=== PATIENT | male | born 1945 | race American Indian/Alaskan Native ===

== ENCOUNTER 2018-07-21 07:43 | Day surgery (SDC) | payer MEDICARE, OTHER ==
[2018-07-21] MEDS ORDERED: ANCEF/STERILE WATER 2 GM/20 ML IV NR (09:00)
[2018-07-21] MEDS ORDERED: LACTATED RINGERS 1,000 ML IV SCH (09:00)
[2018-07-21] MEDS ORDERED: MARCAINE-EPI 0.25%-1:200,000 INFILTRATI ONE (09:13)
[2018-07-21] MEDS ORDERED: XYLOCAINE 1%/ EPI 1:100,000 INFILTRATI ONE ×2 (09:13→10:23)
[2018-07-21] MEDS ORDERED: MARCAINE 0.25% INFILTRATI ONE ×2 (09:14→10:23)
--- NOTE | 2018-07-21 09:21 | Anesthesia Consultation ---
Anesthesia Consult and Med Hx Date of service: 07/21/18 - Airway Anesthetic Teeth Evaluation: Partials ROM Head & Neck: Adequate Mental/Hyoid Distance: Adequate Mallampati Class: Class III Intubation Access Assessment: Possibly Difficult - Pulmonary Exam CTA: Yes - Cardiac Exam Cardiac Exam: RRR - Pre-Operative Health Status ASA Pre-Surgery Classification: ASA3 Proposed Anesthetic Plan: General - Pulmonary Hx Smoking: Yes (STOPPED X 30 YRS- 1 PPD X 15 YRS) Hx Respiratory Symptoms: No Hx Sleep Apnea: Yes (compliant with CPAP) - Cardiovascular System Hx Hypertension: Yes (took amlodipine this morning) Hx Heart Attack/AMI: No Hx Percutaneous Transluminal Coronary Angioplasty (PTCA): No - Central Nervous System CVA: No Hx Psychiatric Problems: Yes (anxiety) - Gastrointestinal Hx Gastroesophageal Reflux Disease: No - Endocrine Hx Renal Disease: No Hx Liver Disease: No Hx Insulin Dependent Diabetes: No Hx Non-Insulin Dependent Diabetes: No - Other Systems Hx Alcohol Use: No Hx Substance Use: No Hx Cancer: Yes (hx prostate Ca) - Additional Comments Anesthesia Medical History Comments: No hx anesthetic complications.
--- NOTE | 2018-07-21 09:21 | Anesthesia Day of Surgery ---
Anesthesia Day of Surgery - Day of Surgery Patient Examined: Yes Patient H&P Reviewed: Yes Patient is NPO: Yes
[2018-07-21] MEDS ORDERED: NORCO 5/325 PO PRN (09:22)
[2018-07-21] MEDS ORDERED: SUBLIMAZE IV PRN (09:30)
[2018-07-21] MEDS ORDERED: SUBLIMAZE ONE (09:31)
[2018-07-21] MEDS ORDERED: XYLOCAINE MPF 2% ONE (09:31)
[2018-07-21] MEDS ORDERED: DIPRIVAN 10 MG/ML IV ONE (09:32)
[2018-07-21] MEDS ORDERED: VERSED ONE (10:02)
--- NOTE | 2018-07-21 11:44 | Short Stay Summary ---
Short Stay Documentation Date of service: 07/21/18 - History Principal diagnosis: right shoulder and left chest wall epidermal inclusion cyst H&P: obtained from office - Allergies and Medications Current Medications: Allergies No Known Allergies Allergy (Verified 07/20/18 12:25) Home Medications Medication Instructions Recorded Confirmed Last Taken Type Cyanocobalamin (Vitamin B-12) 1 tab PO DAILY 03/25/16 07/21/18 07/20/18 09:00 History [Vitamin B12] Fosinopril Sodium 40 mg PO QDAY 03/25/16 07/21/18 07/20/18 09:00 History Trifluoperazine HCl 1 mg PO BID 03/25/16 07/21/18 07/19/18 20:00 History amLODIPine [Norvasc] 10 mg PO DAILY 03/25/16 07/21/18 07/21/18 06:00 History Alfuzosin HCl [Alfuzosin HCl ER] 10 mg PO DAILY 07/21/18 07/21/18 07/20/18 09:00 History Omeprazole 20 mg PO DAILY 07/21/18 07/21/18 07/20/18 09:00 History Pravastatin [Pravachol] 20 mg PO DAILY 07/21/18 07/21/18 07/20/18 20:00 History Active Medications Acetaminophen/Hydrocodone Bitart ([place] 5/325) 2 each PO ONCE PRN PRN Reason: Pain, Moderate (4-6) Stop: 07/21/18 20:00 Cefazolin Sodium (Ancef/Sterile Water 2 Gm/20 Ml) 2 gm IV PREOP NR Stop: 07/21/18 23:59 Fentanyl (Sublimaze) 50 mcg IV Q5MIN PRN PRN Reason: Pain , Severe (7-10) Stop: 07/21/18 23:00 Lactated Ringer's (Lactated Ringers) 1,000 mls @ 75 mls/hr IV DIRECT RADHA Last Admin: 07/21/18 09:11 Dose: 75 mls/hr Documented by: - Brief post op/procedure progress note Date of procedure: 07/21/18 Pre-op diagnosis: right shoulder and left chest wall epidermal inclusion cyst Post-op diagnosis: same Procedure: excision of right shoulder and left chest wall epidermal inclusion cyst Anesthesia: MAC, local Findings: 3 cm cyst of right shoulder and 1 cm cyst of left chest Surgeon: MIGUEL ÁNGEL JAY Estimated blood loss: minimal Pathology: list (right shoulder and left chest wall epidermal inclusion cyst) Specimen disposition: to lab Condition: stable - Hospital course Hospital course: Pt observed in PACU and discharged to home in stable condition. - Disposition Condition at discharge: Good Disposition: DC-01 TO HOME OR SELFCARE Short Stay Discharge Plan Activity: no restrictions Diet: regular Wound: open to air Follow up with: KAYLENE HARDING MD [Primary Care Provider] - 7 Days MIGUEL ÁNGEL JAY DO [Staff Physician] - 14 Days Prescriptions: HYDROcodone/APAP 5-325 [[place] 5-325 mg TAB] 1 each PO Q6H PRN #20 tablet PRN Reason: Pain, Moderate (4-6)
[2018-07-21 12:16] VITALS: BP 134/65
--- NOTE | 2018-07-21 14:44 | Post Anesthesia Evaluation ---
- Post Anesthesia Evaluation Patient Participated: Yes Airway Patent: Yes Stable Respiratory Function: Yes Nausea/Vomiting: No Temp > 96.8F: Yes Pain Manageable: Yes Adequeate Hydration: Yes Anesthesia Complications: No
--- NOTE | 2018-07-21 15:16 | Operative Report ---
PREOPERATIVE DIAGNOSIS: Right shoulder and left chest wall epidermal inclusion cyst. POSTOPERATIVE DIAGNOSIS: Right shoulder and left chest wall epidermal inclusion cyst. PROCEDURE: Excision of right shoulder and left chest wall epidermal inclusion cyst. ANESTHESIA: MAC, local. FINDINGS: 1. A 3 cm cyst of right shoulder. 2. A 1 cm cyst of left chest. SURGEON: Jolene Torrez DO ESTIMATED BLOOD LOSS: Minimal. PATHOLOGY: Right shoulder and left chest wall epidermal inclusion cyst. SPECIMEN DISPOSITION: To lab. DISPOSITION: The patient is stable to PACU. HISTORY OF PRESENT ILLNESS: The patient is a 73-year-old male who presented to the office as a referral from the [place] for evaluation of a cyst on his right upper back shoulder area. Due to discomfort and slow growing nature of this cyst, the patient requested that it be removed. He also had another cyst on his left chest wall, which he also asked to be removed. All risks, benefits, and alternatives to surgery were discussed with the patient and questions answered. Consent was obtained. PROCEDURE IN DETAIL: The patient was identified in the preoperative area and taken back to the operating room and placed on the operating table in supine position. After anesthesia was induced, he was placed in the right lateral decubitus position with all bony prominences padded. The right shoulder was prepped and draped in the usual sterile fashion. A timeout was performed. Local anesthetic was infiltrated into the skin at the intended incision site. An elliptical incision was made around this area of the cyst in order to accommodate and remove the entire cyst. The incision was made using a 15 blade. Dissection was carried down through the skin and subcutaneous tissue using a combination of sharp dissection with the scalpel as well as electrocautery. The cyst was identified and circumferentially dissected free from the surrounding tissue using electrocautery. Once the healthy subcutaneous tissue was seen, the cyst was dissected off of the wound bed. This was passed off the table as specimen. The cyst measured approximately 3 cm and was filled with sarmiento exudative material. The wound bed was checked for hemostasis and irrigated. Hemostasis was carefully achieved using electrocautery. There was no bleeding identified. The skin was then reapproximated without tension using 3-0 nylon vertical mattress interrupted sutures. The skin was then cleansed and the incision was covered with a 4 x 4 gauze and Tegaderm. We then turned our attention to the left chest wall cyst. The left chest in the area of the cyst was prepped and draped in the usual sterile fashion and a local anesthetic was then infiltrated into the skin at the intended incision site. An elliptical incision was made in the skin in order to remove the entire cyst using a 15 blade. Dissection was carried down through the skin and subcutaneous tissue using combination of sharp dissection with the scalpel and electrocautery. The cyst was identified and circumferentially dissected from the surrounding tissues and transected from the wound base. The cyst measured approximately 1 cm. This was passed off the table as specimen. The wound was then irrigated and checked for hemostasis, it was carefully ensured. The deep dermal layer was then approximated using 3-0 Vicryl interrupted sutures. The skin was closed with 4-0 Monocryl subcuticular stitches and skin glue. At the end of the case, all sponge, instrument, sharp counts were correct x 2. The patient was awoken from anesthesia and taken to PACU in stable condition. JOB# [id number] TAWANA/KIAH
== END 2018-07-21 12:50 | disposition home or self-care (01) ==
LOC: OR 07:43
PROVIDERS: ATTEND Surgery
DX: L72.0 Epidermal cyst (principal); E78.00 Pure hypercholesterolemia, unspecified; I10 Essential (primary) hypertension; G47.30 Sleep apnea, unspecified; K21.9 Gastro-esophageal reflux disease without esophagitis; M19.90 Unspecified osteoarthritis, unspecified site; F41.9 Anxiety disorder, unspecified; Z98.890 Other specified postprocedural states; Z80.41 Family history of malignant neoplasm of ovary; Z79.899 Other long term (current) drug therapy; Z87.891 Personal history of nicotine dependence; Z98.49 Cataract extraction status, unspecified eye; Z80.8 Family history of malignant neoplasm of other organs or systems; Z85.46 Personal history of malignant neoplasm of prostate
CPT/HCPCS: 11401; 11403; 88304; J0690; J2250; J2704; J3010; J7120

== ENCOUNTER 2020-11-27 05:42 | Day surgery (SDC) | payer MEDICARE, OTHER ==
--- NOTE | 2020-11-21 09:34 | Anesthesia Consultation ---
Anesthesia Consult and Med Hx Date of service: 11/27/20 - Airway Anesthetic Teeth Evaluation: Partials (Missing) ROM Head & Neck: Adequate Mental/Hyoid Distance: Adequate Mallampati Class: Class III Intubation Access Assessment: Probably Good - Pre-Operative Health Status ASA Pre-Surgery Classification: ASA3 Proposed Anesthetic Plan: General - Pulmonary Hx Smoking: Yes (STOPPED X 30 YRS , 1 PPD X 15 YRS) Hx Respiratory Symptoms: No (+2FS) Hx Sleep Apnea: Yes (DX SLEEP APNEA WITH CPAP USE.) - Cardiovascular System Hx Hypertension: Yes (2001) Hx Heart Attack/AMI: No (Denies cardiac sxs) Hx Percutaneous Transluminal Coronary Angioplasty (PTCA): No - Central Nervous System Hx Psychiatric Problems: Yes (anxiety/schizophrenia) - Gastrointestinal Hx Gastroesophageal Reflux Disease: Yes - Endocrine Hx Renal Disease: No Hx Liver Disease: No Hx Insulin Dependent Diabetes: No Hx Non-Insulin Dependent Diabetes: No Hx Thyroid Disease: No - Hematic Hx Anemia: No Hx Sickle Cell Disease: No - Other Systems Hx Alcohol Use: No Hx Substance Use: No Hx Cancer: Yes Hx Obesity: Yes
[2020-11-21 10:04] LABS: Hematocrit 38.6 % (35.5-45.6); Mean Corpuscular HGB Conc 34 % (32-34); Mean Corpuscular Volume 88 fl (84-94); Platelet Count 180 K/mm3 (140-440); Red Blood Count 4.39 M/mm3 (3.65-5.03); Red Cell Distribution Width 15.2 % (13.2-15.2)
[2020-11-21 10:26] LABS: Alanine Aminotransferase 22 units/L (7-56); Albumin 4.3 g/dL (3.9-5); BUN/Creatinine Ratio 11; Blood Urea Nitrogen 11 mg/dL (9-20); Calcium 9.3 mg/dL (8.4-10.2); Hemolysis Index 4
[2020-11-27] MEDS ORDERED: CELECOXIB 200 MG CAP PO NR (06:00)
[2020-11-27] MEDS ORDERED: MAGNESIUM OXIDE 400 MG TAB PO SCH (06:00)
[2020-11-27] MEDS ORDERED: LACTATED RINGERS 1,000 ML IV SCH (06:00)
[2020-11-27] MEDS ORDERED: GABAPENTIN 300 MG CAP PO NR (06:00)
[2020-11-27] MEDS ORDERED: ACETAMINOPHEN 325 MG TAB PO SCH (06:00)
[2020-11-27] MEDS ORDERED: BACTERIOSTATIC SODIUM CHLORIDE 0.9% 30 ML VIAL INFILTRATI ONE (06:34)
[2020-11-27] MEDS ORDERED: SODIUM CHLORIDE P/F VIAL 10 ML 20 ML ONE (07:11)
[2020-11-27] MEDS ORDERED: NEOMY 40 MG/POLYMYXIN B 200,000 UNITS/ML (GU) AMPULE IR ONE ×2 (07:11→08:29)
[2020-11-27] MEDS ORDERED: SODIUM CHLORIDE 0.9% 500 ML 500 ML ONE (07:11)
[2020-11-27] MEDS ORDERED: BUPIVACAINE/PF (0.5%) 5 MG/1 ML 30 ML VIAL INFILTRATI ONE ×2 (07:11→08:29)
--- NOTE | 2020-11-27 07:23 | Anesthesia Day of Surgery ---
Anesthesia Day of Surgery - Day of Surgery Patient Examined: Yes Patient H&P Reviewed: Yes Patient is NPO: Yes
[2020-11-27] MEDS ORDERED: GENTAMICIN/NS 80 MG/100 ML 100 ML IV ONE (07:26)
[2020-11-27] MEDS ORDERED: ONDANSETRON 4 MG/2 ML INJ ONE (07:27)
[2020-11-27] MEDS ORDERED: LIDOCAINE MPF (2%) 20 MG/1 ML VIAL 5 ML ONE (07:28)
[2020-11-27] MEDS ORDERED: fentaNYL 100 MCG/2 ML INJ ONE (07:28)
[2020-11-27] MEDS ORDERED: propofoL 200 MG/20 ML VIAL IV ONE (07:29)
[2020-11-27] MEDS ORDERED: HYDROmorphone 1 MG/1 ML INJ IV PRN (07:30)
[2020-11-27] MEDS ORDERED: GENTAMICIN/NS 80 MG/100 ML 100 ML IV NR (07:30)
[2020-11-27] MEDS ORDERED: oxyCODONE /ACETAMINOPHEN 5-325MG TAB PO PRN (07:30)
[2020-11-27] MEDS ORDERED: ONDANSETRON 4 MG/2 ML INJ IV PRN (07:30)
[2020-11-27] MEDS ORDERED: VANCOMYCIN/NS 1 GM/250 ML 1 GM/250 ML BAG IV NR (07:30)
[2020-11-27] MEDS ORDERED: dexAMETHasone 20 MG/5 ML VIAL ONE (08:00)
[2020-11-27] MEDS ORDERED: GLYCOPYRROLATE 0.4 MG/2 ML INJ ONE (08:06)
[2020-11-27] MEDS ORDERED: ePHEDrine SULFATE 50 MG/1 ML INJ ONE (08:13)
[2020-11-27] MEDS ORDERED: SODIUM CHLORIDE 0.9% IRR 1,500 ML BOTTLE IR ONE ×2 (08:28)
[2020-11-27] MEDS ORDERED: SODIUM CHLORIDE 0.9% 500 ML IVPB IRRIGATION ONE (08:29)
[2020-11-27] MEDS ORDERED: SODIUM CHLORIDE 0.9% P/F 10 ML VIAL IV ONE (08:30)
--- NOTE | 2020-11-27 10:02 | Short Stay Summary ---
Short Stay Documentation Date of service: 11/27/20 - History H&P: obtained from office - Allergies and Medications Current Medications: Allergies tamsulosin Adverse Reaction (Verified 11/27/20 07:10) Itching Home Medications Medication Instructions Recorded Confirmed Last Taken Type Fosinopril Sodium 40 mg PO QDAY 03/25/16 11/16/20 11/26/20 History Trifluoperazine HCl 1 mg PO BID 03/25/16 11/16/20 11/26/20 History amLODIPine 10 mg PO DAILY 03/25/16 11/27/20 11/27/20 04:00 History Alfuzosin HCl [Alfuzosin HCl ER] 10 mg PO DAILY 07/21/18 11/16/20 11/26/20 History Omeprazole 20 mg PO DAILY 07/21/18 11/16/20 11/26/20 History Pravastatin [Pravachol] 20 mg PO DAILY 07/21/18 11/16/20 11/26/20 History Active Medications Acetaminophen (Acetaminophen 325 Mg Tab) 650 mg PO ONCE RADHA Stop: 11/27/20 21:00 Last Admin: 11/27/20 06:45 Dose: 650 mg Documented by: Celecoxib (Celecoxib 200 Mg Cap) 200 mg PO PREOP NR Stop: 11/27/20 21:00 Last Admin: 11/27/20 06:45 Dose: 200 mg Documented by: Gabapentin (Gabapentin 300 Mg Cap) 300 mg PO PREOP NR Stop: 11/27/20 21:00 Last Admin: 11/27/20 06:45 Dose: 300 mg Documented by: Hydromorphone HCl (Hydromorphone 1 Mg/1 Ml Inj) 0.5 mg IV Q10MIN PRN PRN Reason: Pain , Severe (7-10) Stop: 11/27/20 17:00 Lactated Ringer's (Lactated Ringers) 1,000 mls @ 125 mls/hr IV DIRECT RADHA Last Admin: 11/27/20 07:00 Dose: 125 mls/hr Documented by: Vancomycin HCl (Vancomycin/Ns 1 Gm/250 Ml) 1 gm in 250 mls @ 167.007 mls/hr IV PREOP NR; Protocol Stop: 11/27/20 21:00 Last Admin: 11/27/20 07:35 Dose: 167.007 mls/hr Documented by: Gentamicin Sulfate/Sodium Chloride (Gentamicin/Ns 80 Mg/100 Ml) 100 mls @ 200 mls/hr IV PREOP NR Stop: 11/27/20 21:00 Magnesium Oxide (Magnesium Oxide 400 Mg Tab) 400 mg PO ONCE RADHA Stop: 11/27/20 21:00 Last Admin: 11/27/20 06:45 Dose: 400 mg Documented by: Ondansetron HCl (Ondansetron 4 Mg/2 Ml Inj) 4 mg IV ONCE PRN PRN Reason: Nausea And Vomiting Stop: 11/27/20 17:00 Oxycodone/Acetaminophen (Oxycodone /Acetaminophen 5-325mg Tab) 1 tab PO ONCE PRN PRN Reason: Pain, Moderate (4-6) Stop: 11/27/20 17:00 - Brief post op/procedure progress note Date of procedure: 11/27/20 Pre-op diagnosis: malfunction IPP (AMS) Post-op diagnosis: same Procedure: REPLACE IPP (AMS 21+ 1cm RTE) Anesthesia: GETA Surgeon: AIDEE SANCHZE Estimated blood loss: minimal Pathology: list (IPP DEVICE) Specimen disposition: to lab Condition: stable - Hospital course Hospital course: NORCO,BACTRIM,POST OP INFO ON CHART - Disposition Condition at discharge: Stable Disposition: 01 HOME / SELF CARE / HOMELESS Short Stay Discharge Plan Follow up with: KAYLENE HARDING MD [Primary Care Provider] - 7 Days
--- NOTE | 2020-11-27 12:30 | Operative Report ---
DATE OF SURGERY: 11/27/2020 PREOPERATIVE DIAGNOSIS: Malfunctioning penile prosthesis, AMS type. POSTOPERATIVE DIAGNOSIS: Malfunctioning penile prosthesis, AMS type. 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 SURGEON: Jace Thomas MD PUBLIC HEALTH TECHNOLOGIST: Kamryn Rodriguez. ANESTHESIA: General. ESTIMATED BLOOD LOSS: Minimal. FLUIDS: Crystalloid. COMPLICATIONS: No complications. INDICATIONS: This patient is a 75-year-old gentleman known to our service with a history of prostate cancer and underwent seed therapy in remote past. Also, underwent insertion of inflatable penile prosthesis in 2017 at [facility]. He had done well. He presented to the office last month, stating device would not inflate for several months. Exam was consistent with fluid leak. Discussed options, he agreed to proceed with surgical intervention. DESCRIPTION OF PROCEDURE: The patient was taken to the operative suite, placed in the supine position. After adequate general anesthesia, was prepped and draped in a sterile fashion. Aparicio catheter was placed on the operative field. Metal Dumont retractor was used for exposure. Again, multiple attempts to inflate. There was no fluid in the system. Transscrotal incision was made over the previous incision. Sharp dissection was taken down to the pump. Pump capsule was opened and no signs of infection. It was serosanguineous fluid. The site was cultured with anaerobic and aerobic cultures. We traced the tubing to the cylinders. Left side was opened, no signs of infection. It was cultured as well. Right side was opened. There appeared to have a puncture into the proximal device next to the tubing of unknown etiology. Culture was obtained, cylinders was sent for ID. The reservoir was placed. Tubing was cut to remove from the rest of the device. I inserted 100 mL of saline and left it clamped, continued copious irrigation and dissection for the measurements for the cylinders, which was 22 cm bilaterally. Upon extracting the fluid from the reservoir, there was noted to be approximately 20 mL missing. Concern for a leak was also entertained. The fluid was clear; however, there was less fluid; and therefore, I began to remove the reservoir as well. There was significant amount of scar tissue. I was unable to remove it through the scrotal incision; therefore, I made a small right inguinal incision. Sharp dissection was taken directly over the reservoir, tubing was transferred to the inguinal incision. Sharp dissection was taken down to the pump. I was able to remove it. Copious irrigation was performed. Adequate hemostasis was achieved. No signs of infection or bleeding was noted here. A new 100 mL Conceal reservoir was prepped, placed in the same retropubic space. Tubing was tunneled to the scrotum. Inguinal incision subcutaneous tissue was closed with a 2-0 Vicryl in a running fashion. Skin was closed with felix. Next, 21 cm cylinders were prepped, placed in the corporal bodies with the aid of a Todd needle. Corporotomies were closed with a 2-0 Vicryl in a running fashion. The pump was connected to the reservoir with the quick click connection system. Insufflation revealed an excellent erection. It was deflated. The pump was placed in the dependent portion of the scrotum. Pursestring suture was used to secure the pump in the dependent portion using a 2-0 Vicryl in a pursestring fashion and a running stitch to close the dartos layer. Skin was closed with 2-0 Vicryl in an interrupted fashion. Collodion and mummy wrap was placed. Aparicio catheter was left indwelling. Mesh pants were placed. The patient was extubated and taken to recovery room. He will go home with Aparicio catheter and follow up in the office tomorrow for removal of his mummy wrap and Aparicio. He has Bactrim and [place]. Kamryn Rodriguez was at the bedside and assisted throughout the case. TID: [id number] RECEIPT: [id number] [facility]
[2020-11-27 19:17] VITALS: BP 136/62
== END 2020-11-27 05:43 | disposition home or self-care (01) ==
LOC: OR 05:42
PROVIDERS: ATTEND Urology
DX: C61 Malignant neoplasm of prostate (principal); I10 Essential (primary) hypertension; E66.9 Obesity, unspecified; F41.9 Anxiety disorder, unspecified; F32.9 Major depressive disorder, single episode, unspecified; E78.00 Pure hypercholesterolemia, unspecified; G47.30 Sleep apnea, unspecified; K21.9 Gastro-esophageal reflux disease without esophagitis; Z87.891 Personal history of nicotine dependence; Z79.899 Other long term (current) drug therapy; Z98.890 Other specified postprocedural states; Z88.8 Allergy status to other drugs, medicaments and biological substances; Z68.32 Body mass index [BMI] 32.0-32.9, adult; Z20.822 Contact with and (suspected) exposure to COVID-19
CPT/HCPCS: 36415; 54410; 80053; 85027; 87075; 87116; 88300; C1813; J1100; J1170; J1580; J2405; J2704; J3010; J3370; J7040; J7120; U0003; 88302